=== PATIENT | male | born 1980 | race Caucasian/White ===

== ENCOUNTER → 2020-10-17 | Outpatient (CLI) | payer BC | LOC: LAB 08:16 | DX: Z20.822 Contact with and (suspected) exposure to COVID-19 (principal) ==

== ENCOUNTER 2021-01-19 16:09 | Emergency (ER) | payer BC ==
[~2021-01-19] VITALS: Ht 185.4 cm; Wt 68.2 kg
[2021-01-19 17:40] VITALS: BP 97/74
== END 2021-01-19 17:45 | disposition home or self-care (01) ==
LOC: ED 16:09
DX: S93.401A Sprain of unspecified ligament of right ankle, initial encounter (principal); S93.601A Unspecified sprain of right foot, initial encounter; F17.210 Nicotine dependence, cigarettes, uncomplicated; W10.9XXA Fall (on) (from) unspecified stairs and steps, initial encounter
CPT/HCPCS: L4396